=== PATIENT | male | born 1955 | race Asian ===

== ENCOUNTER 2018-04-01 14:05 | Observation (INO) | payer OTHER ==
[2018-04-01] MEDS ORDERED: Nitroglycerin 2% Ointment 1 INCH/1 GM Packet ONE (14:24)
[2018-04-01 14:29] LABS: #Basophils 0.1 thou/uL (0.0-0.2); #Eosinphils 0.5 thou/uL (0.0-0.7); #Lymphocytes 2.1 thou/uL (1.20-3.40); #Monocytes 1.1 thou/uL (0.11-0.59); #Neutrophils 7.2 thou/uL (1.40-6.50); %Basophils 1.3 % (0.0-1.0); %Eosinophils 4.7 % (0.0-10.0); %Lymphocytes 18.7 % (21.0-51.0); %Monocytes 9.6 % (0.0-10.0); %Neutrophils 65.6 % (42.0-75.0); Mean Corpuscular HGB CONC 34.8 g/dL (32.0-36.0); Mean Corpuscular Hemoglobin 29.3 pg (27.0-31.0); Mean Platelet Volume 8.5 fL (7.4-10.4); Platelet Count 325 thou/uL (130-400); RBC Distribution Width 11.2 % (11.5-14.5); Red Blood Cell (RBC) Count 5.45 mill/uL (4.70-6.10)
[2018-04-01 14:41] LABS: ALT (SGPT) 46 U/L (8-55); AST (SGOT) 33 U/L (5-34); Albumin 4.8 g/dL (3.5-5.0); Alkaline Phosphatase 87 U/L (40-150); Anion Gap 14 mmol/L (10-20); BUN (Urea Nitrogen) 13 mg/dL (8.4-25.7); Bilirubin, Total 0.9 mg/dL (0.2-1.2); Calc. Creatinine Clearance 0 mL/min (70-130); Carbon Dioxide 25 mmol/L (22-29); Chloride 102 mmol/L (98-107); Estimated GFR-MDRD 59; Globulin 2.7 g/dL (2.4-3.5); Glucose 112 mg/dL (70-105); Potassium 4.4 mmol/L (3.5-5.1); Protein, Total 7.5 g/dL (6.0-8.3); Sodium 137 mmol/L (136-145)
[2018-04-01 14:43] LABS: CKMB 3.2 ng/mL (0-6.6); Troponin I 0.016 ng/mL (< 0.028)
--- NOTE | 2018-04-01 14:50 | RAD ---
PORTABLE CHEST 1 VIEW: DATE: 04/01/18. TIME: 2:49 p.m. HISTORY: Chest pain. FINDINGS: The heart size is normal. The lungs are well expanded without lobar consolidation, pneumothoraces, o r pleural effusions. IMPRESSION: No radiographic evidence of acute cardiopulmonary process. POS: [facility]
[2018-04-01 16:43] VITALS: BMI 25.5
[2018-04-01 17:47] LABS: Troponin I Less than 0.010 ng/mL (< 0.028)
[2018-04-01] MEDS ORDERED: HumaLOG 300 UNITS/3 ML VIAL SC PRN ×2 (19:20)
[2018-04-01] MEDS ORDERED: Dextrose 50% Abboject 50 ML SYRINGE SLOW IVP PRN (19:20)
[2018-04-01] MEDS ORDERED: Milk Of Magnesia 30 ML UDCUP PO PRN (19:20)
[2018-04-01] MEDS ORDERED: Dextrose 5% in Water 1,000 ML IV PRN (19:20)
[2018-04-01] MEDS ORDERED: Acetaminophen 325 MG TAB PO PRN (19:20)
[2018-04-01] MEDS: Metoprolol Tartrate 25 MG TAB PO SCH (19:52)
[2018-04-01] MEDS: Docusate 100 MG CAP PO SCH (19:52)
[2018-04-01] MEDS: Atorvastatin Calcium 10 MG TAB PO SCH (19:52)
[2018-04-01] MEDS: Mirtazapine 15 MG TAB PO SCH (19:53)
[2018-04-01 20:57] LABS: Troponin I Less than 0.010 ng/mL (< 0.028)
[2018-04-02] MEDS: Nitroglycerin 2% Ointment 1 INCH/1 GM Packet TOP SCH ×4 (00:34→21:02)
--- NOTE | 2018-04-02 00:46 | HP ---
PRIMARY CARE PHYSICIAN: Dr. Junior Sims. ACTIVITIES DIRECTOR: Dr. Jaden Garcias in [place] and his phone number is [phone] and his cousin is a lso a physician and helps him handle . CHIEF COMPLAINT: Chest pain. HISTORY OF PRESENT ILLNESS: Mr. Wiseman is a very pleasant 62-year-old gentleman who has a history of co ronary artery disease and diabetes mellitus. He had a cardiac stent placed in 05/2017. He says that at that time he was having some chest tightness and dyspnea. He says that he was doing well after h e was treated until about a month ago when he started having chest tightness off and on, it is in the left side of his chest and it is not necessarily associated with exertion. He says that today it wa s fairly bad. He rated it at a 7/10. He says that he had some wetness in his palms and he felt "upt ight." He also said he was extremely sweaty, but he denies having any nausea or vomiting, but he bernabe s says that he feels like he is having some type of excess gas. He says that when he started having trouble walking, he says when he walked to and from the kitchen he would feel exhausted, which was un usual. This is when his said he needed to come to the hospital to be evaluated. He says simila r episode happened again about close to a year ago. He says that the symptoms are similar. He says that when he was diagnosed a year ago, he had previously been to a hospital in [place] where he says that they ran a test and told him everything was fine and he says he does not understand how that cou ld have been. He says that about a month later in 05/2017 when he had been to the hospital in [facility], it sounds like he had a stress test which was more or less equivocal, then he had a cardiac cathet erization in which they saw the 2-vessel coronary artery disease. REVIEW OF SYSTEMS: All systems were reviewed and are negative except for that mentioned in the histo ry of present illness. PAST MEDICAL HISTORY: Significant for diabetes mellitus and coronary artery disease as well as anxie ty. PAST SURGICAL HISTORY: He has had cardiac stents x2 in May. He has also had lumbar disk surgery with microsurgery. ALLERGIES: No known drug allergies. SOCIAL HISTORY: He is . He is a nonsmoker, nondrinker. He has 1 daughter. 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 FAMILY HISTORY: Significant for coronary artery disease in his father who in his 70s and grandf ather who had a stroke. CURRENT MEDICATIONS: Include the following: Effient 10 mg daily, Seroquel 25 mg at bedtime, lisinop ril 5 mg daily, pantoprazole 40 mg daily, mirtazapine 15 mg once a day, isosorbide mononitrate 30 mg daily, metoprolol 12.5 mg twice a day, aspirin 81 mg daily, atorvastatin 10 mg daily, and metformin 5 00 mg twice a day. PHYSICAL EXAMINATION: GENERAL: He is alert and oriented. He appears to be in no acute distress. VITAL SIGNS: Blood pressure was 143/72, heart rate 75, respiratory rate of 18, temperature is 98.2. HEENT: His pupils are equal, round, and reactive. Extraocular muscles are intact. His sclerae are anicteric. Throat, no erythema, no exudates. NECK: No adenopathy, no bruits. LUNGS: Clear to auscultation. There is no wheezing or rales. CARDIOVASCULAR: He had a normal S1, S2. No S3 or S4. No murmurs, clicks or rubs. ABDOMEN: Obese, it is soft, it is nontender, nondistended. Positive for bowel sounds. No rebound, no guarding. EXTREMITIES: There is no clubbing, cyanosis, no edema. NEUROLOGIC: The exam is nonfocal. SKIN AND INTEGUMENT: No skin changes. No rash. LABORATORY AND X-RAY FINDINGS: On his EKG, it was normal sinus rhythm with no ST wave changes. The rate was in the 70s. CBC: White blood cell count is 11, hemoglobin 16, hematocrit is 45.8, platelet count is 325. Sodium 137, potassium 4.4, chloride is 102, CO2 is 25, BUN of 13, creatinine 1.25, gl ucose is 112. His troponins were 0.016. ASSESSMENT AND PLAN: 1. This is a 62-year-old gentleman who presents with chest pain, which has become more and more freq uent over the last month. He also complains of some excessive dyspnea on exertion. These symptoms a re suspicious for possible unstable or crescendo angina. He will be placed in observation, started o n aspirin and nitrates, and continue his beta myra therapy. We will consult Cardiology and leave him n.p.o. in the event that he needs a cardiac catheterization, 2. Diabetes mellitus, metformin will be held again in the event that he needs a cardiac catheterizat ion, place him on a sliding scale insulin. Continue his Lipitor and lisinopril as well as Effient. Further recommendations will be based on Cardiology recommendations.
[2018-04-02 05:44] LABS: #Eosinphils 0.5 thou/uL (0.0-0.7); #Monocytes 0.9 thou/uL (0.11-0.59); #Neutrophils 4.8 thou/uL (1.40-6.50); %Basophils 0.3 % (0.0-1.0); %Eosinophils 5.1 % (0.0-10.0); %Lymphocytes 32.6 % (21.0-51.0); %Monocytes 10.1 % (0.0-10.0); Hemoglobin 14.2 g/dL (14.0-18.0); Mean Corpuscular HGB CONC 34.7 g/dL (32.0-36.0); Mean Corpuscular Hemoglobin 31.5 pg (27.0-31.0); Mean Corpuscular Volume 90.9 fL (78.0-98.0); Mean Platelet Volume 7.9 fL (7.4-10.4); Platelet Count 272 thou/uL (130-400); RBC Distribution Width 11.9 % (11.5-14.5); Red Blood Cell (RBC) Count 4.52 mill/uL (4.70-6.10); White Blood Cell (WBC) Count 9.2 thou/uL (4.8-10.8)
[2018-04-02 05:49] LABS: Anion Gap 11 mmol/L (10-20); BUN (Urea Nitrogen) 13 mg/dL (8.4-25.7); Calc. Creatinine Clearance 77 mL/min (70-130); Calcium 9.4 mg/dL (7.8-10.44); Carbon Dioxide 28 mmol/L (22-29); Cardiac Risk 3.2 (Less than 4.5); Chloride 104 mmol/L (98-107); Cholesterol 94 mg/dl (< 200 Desired); Estimated GFR-MDRD 64; Glucose 131 mg/dL (70-105); HDL Cholesterol 29 mg/dL (>60 Neg Risk); LDL Cholesterol, Calculated 42 mg/dL; Potassium 4.3 mmol/L (3.5-5.1); Sodium 139 mmol/L (136-145); Triglycerides 113 mg/dL (Less than 150)
[2018-04-02] MEDS ORDERED: Enoxaparin Sodium 40 MG/0.4 ML SYRINGE SC SCH (09:00)
[2018-04-02] MEDS: Lisinopril 5 MG TAB PO SCH (12:36)
[2018-04-02] MEDS: Prasugrel 10 MG TAB PO SCH (12:36)
[2018-04-02] MEDS: Aspirin 325 MG TAB PO SCH (12:36)
[2018-04-02] MEDS: Metoprolol Tartrate 25 MG TAB PO SCH ×2 (12:36→20:17)
[2018-04-02] MEDS: Docusate 100 MG CAP PO SCH ×2 (12:37→20:17)
[2018-04-02] MEDS ORDERED: Communication Order-Pharmacy FS SCH (14:30)
--- NOTE | 2018-04-02 14:53 | CON ---
DATE OF CONSULTATION: 04/02/2018 CARDIOLOGY CONSULTATION REASON FOR CONSULTATION: Chest pain. HISTORY OF PRESENT ILLNESS: Mr. Wiseman is a pleasant 62-year-old gentleman who comes to the [facility] for chest pain. He has a history of coronary artery disease with a stent placed back in May of last year. He was visiting family in [place] and he went into the hospital for increased episodes of chest pain and saw Dr. Hutchins over there who did a heart catheterization and placed 2 stents, u nknown if it was just a 1 vessel with 2 stents or 2 different vessels. He does not have a stent card with him. He does not know what type of stents these were. He states that he feels much better aft er that except about a month ago he started having chest pains again on and off, very similar to what he had been having before. It got to the point today where he was much more symptomatic and he woul d have pain at rest. He decided to come in for further evaluation. He is ruled out, so far, but at rest, he is not having any pain, but if he moves around, he starts getting pain again. PAST MEDICAL HISTORY: 1. Type 2 diabetes. 2. Coronary artery disease as above. 3. Anxiety. PAST SURGICAL HISTORY: 1. Stents x2 in May of last year as above. 2. Lumbar disk surgery. OUTPATIENT MEDICATIONS: 1. Effient 10 mg a day. 2. Seroquel 25 mg at bedtime. 3. Lisinopril 5 mg a day. 4. Pantoprazole 40 mg a day. 5. Mirtazapine. 6. Isosorbide mononitrate 30 mg a day. 7. Metoprolol 12.5 mg b.i.d. 8. Aspirin 81 a day. 9. Atorvastatin 10 mg a day. 10. Metformin 500 mg twice a day. ALLERGIES: No known drug allergies. FAMILY HISTORY: Coronary artery disease in father. SOCIAL HISTORY: No alcohol, tobacco or drugs. 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 He is on disability now. REVIEW OF SYSTEMS: A 12-point review of systems was done and is all negative unless stated in the hi story of present illness. PHYSICAL EXAMINATION: VITAL SIGNS: Temperature 98.0, pulse 76, respiration rate 18, satting 97% on room air, blood pressur e 130/85. GENERAL: Awake, alert, oriented x3, in no distress. HEENT: Normocephalic. NECK: Supple. LUNGS: Clear. CARDIOVASCULAR: S1, S2. No S3, S4. No murmurs. ABDOMEN: Soft with positive bowel sounds. EXTREMITIES: No edema. SKIN: Warm and dry. LABORATORY WORK: Reviewed. CBC is unremarkable. White count was 11 on admission, but down to 9.2, hemoglobin is stable at 14, platelet count 272,000. Chemistries were unremarkable. GFR of 64. Trop onin is negative x3 with CK of 249. CK-MB was normal. Triglycerides of 113, total cholesterol of 94 , LDL of 42, HDL of 29. EKG was reviewed. ASSESSMENT AND PLAN: 1. Unstable angina: Symptoms are the same as they were before when he had stenting. These have bee n in the last month and have now gone to be at rest. We will plan on further risk stratificati on with a heart catheterization. We spoke at length about the risks and benefits of the procedures, which included but not limited to stroke, myocardial infarction, , bleeding, need for blood rahman sfusion, limb loss, organ loss. The patient understands the above and verbalized understanding of th is. He agrees to proceed. He had this done about a year ago, so he knows the procedure well. 2. Further recommendation per results of coronary angiogram.
--- NOTE | 2018-04-02 15:43 | PDOC.PN ---
- Subjective Encounter Start Date: 04/02/18 Encounter Start Time: 15:42 Pt seen for followup re: chest pain. Denies chest pain at rest, reports SOBOE and chest pain with exertion. - Objective Resuscitation Status: Resuscitation Status FULL:Full Resuscitation MAR Reviewed: Yes Vital Signs & Weight: Vital Signs (12 hours) Temp Pulse Resp BP BP Pulse Ox 04/02/18 12:36 81 04/02/18 11:31 81 18 130/85 04/02/18 08:10 98.0 F 76 18 130/77 97 04/02/18 08:00 98.0 F 81 18 04/02/18 05:21 97.8 F 65 16 104/64 94 L Weight Weight 178 lb I&O: 04/01/18 04/02/18 04/03/18 06:59 06:59 06:59 Intake Total 1200 Balance 1200 Result Diagrams: 04/02/18 04:58 04/02/18 04:58 Additional Labs: Accuchecks 04/02/18 04/02/18 04/01/18 11:13 05:16 19:50 POC Glucose 123 H 137 H 155 H 04/01/18 16:55 POC Glucose 103 EKG Reviewed by me: Yes (Tele: NSR) Phys Exam - Physical Examination Constitutional: NAD HEENT: moist MMs, sclera anicteric, oral pharynx no lesions, 2+ tonsils Neck: no nodes, no JVD, supple, full ROM Respiratory: no wheezing, no rales, no rhonchi, clear to auscultation bilateral Cardiovascular: RRR, no rub S1, S2 Gastrointestinal: soft, non-tender, no distention, positive bowel sounds Neurological: moves all 4 limbs Psychiatric: normal affect, A&O x 3 Dx/Plan (1) Chest pain Code(s): R07.9 - CHEST PAIN, UNSPECIFIED Status: Acute Comment: Monitor on telemetry. Plan for cath tomorrow. (2) DM2 (diabetes mellitus, type 2) Status: Chronic Comment: continue accuchecks, insulin sliding scale. (3) HTN (hypertension) Code(s): I10 - ESSENTIAL (PRIMARY) HYPERTENSION Status: Chronic Comment: controlled (4) Dyslipidemia Code(s): E78.5 - HYPERLIPIDEMIA, UNSPECIFIED Status: Chronic Comment: continue statin - Plan * . Review of Systems - Review of Systems Constitutional: negative: fever, chills, sweats, weakness, malaise Respiratory: SOB with Excertion. negative: Cough, Shortness of Breath, Pleuritic Pain, Wheezing Cardiovascular: chest pain. negative: palpitations, orthopnea, paroxysmal nocturnal dyspnea, edema, light headedness Gastrointestinal: negative: Nausea, Vomiting, Abdominal Pain, Diarrhea, Constipation, Melena, Hematochezia Genitourinary: negative: Dysuria, Frequency, Incontinence, Hematuria, Retention Skin: negative: Rash, Lesions, Pj, Bruising - Medications/Allergies Allergies/Adverse Reactions: Allergies Allergy/AdvReac Type Severity Reaction Status Date / Time No Known Allergies Allergy Verified 04/01/18 16:33 Medications: Current Medications Acetaminophen (Tylenol) 650 mg PO Q4H PRN PRN Reason: Headache/Fever or Pain Aspirin (Aspirin) 325 mg PO DAILY [facility] Last Admin: 04/02/18 12:36 Dose: 325 mg Atorvastatin Calcium (Lipitor) 10 mg PO QPM [facility] Last Admin: 04/01/18 19:52 Dose: 10 mg Dextrose/Water (Dextrose 50%) 25 gm SLOW IVP PRN PRN PRN Reason: Hypoglycemia Docusate Sodium (Colace) 100 mg PO BID [facility] Last Admin: 04/02/18 12:37 Dose: Not Given Enoxaparin Sodium (Lovenox) 40 mg SC 0900 [facility] Stop: 04/02/18 21:01 Last Admin: 04/02/18 12:37 Dose: 40 mg Glucagon (Glucagon) 1 mg IM PRN PRN PRN Reason: Hypoglycemia Dextrose/Water (D5w) 1,000 mls @ 0 mls/hr IV .Q0M PRN PRN Reason: Hypoglycemia Sodium Chloride (Normal Saline 0.9%) 1,000 mls @ 100 mls/hr IV .Q10H [facility] Insulin Human Lispro (Humalog) 0 units SC .MODERATE SLIDING SC PRN PRN Reason: Moderate Correctional Scale Stop: 04/03/18 00:01 Insulin Human Lispro (Humalog) 0 units SC .BEDTIME SLIDING SC PRN PRN Reason: Bedtime Correctional Scale Stop: 04/03/18 00:01 Lisinopril (Zestril) 5 mg PO DAILY [facility] Last Admin: 04/02/18 12:36 Dose: 5 mg Magnesium Hydroxide (Milk Of Magnesium) 30 ml PO DAILYPRN PRN PRN Reason: Constipation Metoprolol Tartrate (Lopressor) 12.5 mg PO BID [facility] Last Admin: 04/02/18 12:36 Dose: 12.5 mg Mirtazapine (Remeron) 15 mg PO HS [facility] Last Admin: 04/01/18 19:53 Dose: 15 mg Miscellaneous Information (Communication Order-Pharmacy) 0 each FS ONE [facility] Stop: 04/03/18 12:00 Morphine Sulfate (Morphine) 2 mg SLOW IVP Q4H PRN PRN Reason: Chest Pain Nitroglycerin (Nitro-Bid 2% Ointment) 0.5 inch TOP Q8HR [facility] Last Admin: 04/02/18 05:42 Dose: Not Given Pantoprazole Sodium (Protonix) 40 mg PO 2100 [facility] Prasugrel (Effient) 10 mg PO DAILY [facility] Last Admin: 04/02/18 12:36 Dose: 10 mg Quetiapine Fumarate (Seroquel) 25 mg PO HS [facility] Last Admin: 04/01/18 19:54 Dose: 25 mg
[2018-04-02] MEDS: Mirtazapine 15 MG TAB PO SCH (20:17)
[2018-04-02] MEDS: Atorvastatin Calcium 10 MG TAB PO SCH (20:17)
[2018-04-03] MEDS: Sodium Chloride 0.9% 1,000 ML IV SCH ×2 (00:02→11:36)
[2018-04-03] MEDS: Aspirin 325 MG TAB PO SCH (04:37)
[2018-04-03] MEDS: Docusate 100 MG CAP PO SCH (04:37)
[2018-04-03] MEDS: Prasugrel 10 MG TAB PO SCH (04:37)
[2018-04-03] MEDS: Lisinopril 5 MG TAB PO SCH (04:38)
[2018-04-03] MEDS: Metoprolol Tartrate 25 MG TAB PO SCH (04:38)
[2018-04-03] MEDS: Nitroglycerin 2% Ointment 1 INCH/1 GM Packet TOP SCH ×2 (07:19→15:08)
[2018-04-03] MEDS ORDERED: Lidocaine 1% (PF) 30 ML VIAL ONE (09:18)
[2018-04-03] MEDS ORDERED: Fentanyl 100 MCG/2 ML VIAL ONE (09:48)
[2018-04-03] MEDS ORDERED: Midazolam HCl 2 mg/2 ml Vial ONE (09:48)
[2018-04-03] MEDS ORDERED: Iopamidol 370 76% 100 ML VIAL ONE (10:02)
[2018-04-03] MEDS ORDERED: traMADol HCl 50 MG TAB PO PRN (10:12)
[2018-04-03] MEDS ORDERED: Acetaminophen/Codeine 30-300mg Tablet PO PRN (10:12)
[2018-04-03] MEDS ORDERED: Nitroglycerin 0.4 MG TAB (25 Tab Bottle) SL PRN (10:12)
[2018-04-03] MEDS ORDERED: Sodium Chloride 0.9% 200 ML IV SCH (10:15)
[2018-04-03 11:57] VITALS: BP 134/84; TEMP 98
--- NOTE | 2018-04-04 12:54 | DIS ---
DATE OF ADMISSION: 04/01/2018 DATE OF DISCHARGE: 04/03/2018 PRIMARY CARE PHYSICIAN: Junior Sims M.D. DISCHARGE DIAGNOSIS: Chest pain. CONDITION OF PATIENT ON THE DAY OF DISCHARGE: Stable. I assessed Mr. Wiseman on the day of discharge. He denied any chest pain or shortness of breath. PHYSICAL EXAMINATION: VITAL SIGNS: Stable. HEART: S1 and S2 are heard, regular. LUNGS: Clear to auscultation bilaterally. CONSULTATIONS DURING THIS HOSPITALIZATION: Cardiology, Dr. Hunt. HOSPITAL COURSE: Mr. Wiseman is a pleasant 62-year-old gentleman who was admitted to [facility] on 04/01/2018 for chest pain. Please refer Dr. Gross's history and physical note lobo ed on 04/01/2018 for further details. He was seen by Cardiology Service. He underwent cardiac catheterization on 04/03/2018. He was found to have patent LAD stent, small OM1 with moderate disease, patent RCA, and left ventricular ejection fraction of 60%. He has been advised medical therapy and risk factor modification. He also had a 2 D echocardiogram during this hospitalization, which showed left ventricular ejection fraction of 60% to 65%, grade 1/3 diastolic dysfunction, mild mitral regurgitation, mild tricuspid regurgitation, mil d distal inferoseptal hypokinesis, and lipomatous hypertrophy of interatrial septum. DISCHARGE MEDICATIONS: No change was made to his preadmission, home medications as dictated in Dr. Amarilis sellers's history and physical note dated 04/01/2018. Many thanks for allowing me to participate in your patient's care. Please feel free to contact me wi th any questions or concerns. DISCHARGE DESTINATION: Home.
== END 2018-04-03 15:33 | disposition home or self-care (01) ==
LOC: SCSER 14:05 → 2SW 16:13
PROVIDERS: ADMIT Internal Medicine Infectious Disease; ATTEND Internal Medicine Infectious Disease
PROC: 4A023N7 Measurement of Cardiac Sampling and Pressure, Left Heart, Percutaneous Approach (ICD-10-PCS; principal; 2018-04-03)
PROC: B2111ZZ Fluoroscopy of Multiple Coronary Arteries using Low Osmolar Contrast (ICD-10-PCS; 2018-04-03)
DX: I25.110 Atherosclerotic heart disease of native coronary artery with unstable angina pectoris (principal); E11.9 Type 2 diabetes mellitus without complications; F41.9 Anxiety disorder, unspecified; E78.5 Hyperlipidemia, unspecified; Z79.82 Long term (current) use of aspirin; Z79.84 Long term (current) use of oral hypoglycemic drugs; Z79.899 Other long term (current) drug therapy; Z95.5 Presence of coronary angioplasty implant and graft
CPT/HCPCS: 36415; 36416; 71045; 80048; 80053; 80061; 82553; 84484; 85025; 85379; 93005; 93306; 93458; 94760; 96360; 96361; 96372; 99152; 99153; C1769; G0378; J1644; J1650; J2001; J2250; J3010

== ENCOUNTER 2018-04-25 14:04 | Outpatient (CLI) | payer OTHER | END 2018-04-25 14:05 | disposition home or self-care (01) | LOC: DTY/OP 14:04 | PROVIDERS: ATTEND Family Medicine | DX: Z71.3 Dietary counseling and surveillance (principal); E11.65 Type 2 diabetes mellitus with hyperglycemia | CPT/HCPCS: 97802 ==